=== PATIENT | male | born 1970 | race Caucasian/White ===

== ENCOUNTER 2016-12-23 21:31 | Emergency (ER) | payer MEDICAID ==
[~2016-12-23] VITALS: Ht 182.9 cm; Wt 79.4 kg
[2016-12-23 21:31] VITALS: BP 144/75
--- NOTE | 2016-12-23 21:50 | NUR ---
CALLED FOR TRIAGE; NOT IN LOBBY. INFORMED BY ADMITTING PT WALKED OUT"
== END 2016-12-23 23:12 | disposition left against medical advice (07) ==
LOC: ER 21:34
DX: Z53.21 Procedure and treatment not carried out due to patient leaving prior to being seen by health care provider (principal)
CPT/HCPCS: A4606; Z7610

== ENCOUNTER 2017-02-02 04:01 | Emergency (ER) | payer OTHER ==
--- NOTE | 2017-02-02 04:03 | NUR ---
CALLED FOR TRIAGE; NOT IN LOBBY
--- NOTE | 2017-02-02 04:22 | NUR ---
CALLED AGAIN; NO ANSWER
--- NOTE | 2017-02-02 05:04 | NUR ---
CALLED FOR TRIAGE; NOT IN LOBBY.
== END 2017-02-02 05:05 | disposition left against medical advice (07) ==
LOC: ER 04:01
DX: Z53.21 Procedure and treatment not carried out due to patient leaving prior to being seen by health care provider (principal)

== ENCOUNTER 2017-10-12 08:56 | Emergency (ER) | payer OTHER ==
[~2017-10-12] VITALS: Ht 182.9 cm; Wt 83.9 kg
--- NOTE | 2017-10-12 09:19 | NUR ---
THE PATIENT WAS CLEARED BY DR. KITCHEN.
--- NOTE | 2017-10-12 09:19 | NUR ---
Patient discharged to [facility] in stable condition. Written and verbal after care instructions given. Patient verbalizes understanding of instruction.
[2017-10-12 09:20] VITALS: BP 90/57
[2017-10-12] MEDS ORDERED: OLANZAPINE 10 MG VIAL IM ONE ×2 (10:11→10:30)
== END 2017-10-12 09:22 ==
LOC: ER 08:58
DX: S00.83XA Contusion of other part of head, initial encounter (principal); I10 Essential (primary) hypertension; Z88.0 Allergy status to penicillin; W22.8XXA Striking against or struck by other objects, initial encounter; Y93.89 Activity, other specified; Y92.89 Other specified places as the place of occurrence of the external cause; Y99.8 Other external cause status
CPT/HCPCS: A4606; A6402; J3490; Z7610

== ENCOUNTER 2018-09-05 03:02 | Emergency (ER) | payer OTHER ==
--- NOTE | 2018-09-05 03:07 | NUR ---
PATIENT REFUSED TO BE TRIAGED.
== END 2018-09-05 03:09 | disposition left against medical advice (07) ==
LOC: ER 03:02
DX: Z53.21 Procedure and treatment not carried out due to patient leaving prior to being seen by health care provider (principal)

== ENCOUNTER 2019-08-05 23:46 | Inpatient (IN) | payer MEDICAID, OTHER ==
[~2019-08-05] VITALS: Ht 188 cm; Wt 84.8 kg
--- NOTE | 2019-08-06 | NUR ---
PT AILYN FROM [place] C/O MIDSTERNAL CHEST PAIN. PT ALSO STATES "I JUST WANT TO SLEEP AND SOME FOOD". PT DENIES SOB, HEADACHE, NAUSEA, VOMITTING, DIZZINESS. PT AAOX4. VITAL SIGNS STABLE. RESPIRATIONS EVEN AND UNLABORED. SKIN WARM AND INTACT. NO ACUTE DISTRESS NOTED AT THIS TIME. PLACED ON CONTINUOUS LEAD TRAINER, WILL CONTINUE TO MONITOR
--- NOTE | 2019-08-06 00:26 | NUR ---
IV INITIATED, BLOOD COLLECTED FROM SITE. [facility]Y[employer] [employer] AT BEDSIDE FOR COLLECTION
[2019-08-06 00:35] LABS: BASOPHILS % (AUTO) 0.4 % (0.0-2.0); EOSINOPHILS % (AUTO) 0.2 % (0.0-6.0); HEMATOCRIT 34 % (39-51); HEMOGLOBIN 11.4 g/dL (13.5-17.5); LYMPHOCYTES # (AUTO) 0.9 /CMM (0.8-4.8); LYMPHOCYTES % (AUTO) 15.8 % (20.0-44.0); MEAN CORPUSCULAR HGB CONC 34 g/dl (31.0-36.0); MEAN CORPUSCULAR VOLUME 92 fL (80-96); MONOCYTES # (AUTO) 0.6 /CMM (0.1-1.30); MONOCYTES % (AUTO) 10.5 % (2.0-12.0); NEUTROPHILS # (AUTO) 4.3 /CMM (1.8-8.9); NEUTROPHILS % (AUTO) 73.1 % (43.0-81.0); PLATELET COUNT (AUTO) 183 /CMM (150-450); RED BLOOD CELL COUNT(AUTO) 3.68 MIL/uL (4.5-6.0); WHITE BLOOD COUNT (AUTO) 5.8 K/uL (4.3-11.0)
[2019-08-06 00:40] LABS: CALCIUM, SERUM 8.5 mg/dL (8.5-10.1); CARBON DIOXIDE 25 mmol/L (21-32); CHLORIDE 102 mmol/L (98-107); GLUCOSE 132 mg/dL (74-106); POTASSIUM 3.1 mmol/L (3.5-5.1); SODIUM SERUM 138 mmol/L (136-145); UREA NITROGEN, BLOOD 21 mg/dL (7-18)
[2019-08-06 00:54] LABS: B-TYPE NATRIURETIC PEPTIDE 3043 PG/ML (0-125)
[2019-08-06] MEDS ORDERED: FUROSEMIDE 40 MG/4 ML VIAL IV ONE (02:00)
--- NOTE | 2019-08-06 02:49 | NUR ---
BED ASSIGNMENT 323-2
[2019-08-06] MEDS ORDERED: Z GUARD REMEDY 2 OZ OINT TP PRN (03:30)
[2019-08-06] MEDS ORDERED: ONDANSETRON HCL/PF 4 MG/2 ML VIAL IVP PRN (03:30)
[2019-08-06] MEDS ORDERED: POTASSIUM CHLORIDE 20 MEQ TAB.PRT.SR PO ONE (03:30)
[2019-08-06] MEDS ORDERED: MAGNESIUM HYDROXIDE 30 ML UDC PO PRN (03:30)
[2019-08-06] MEDS ORDERED: ACETAMINOPHEN 325 MG TABLET PO PRN (03:30)
[2019-08-06] MEDS ORDERED: HYDROCODONE/APAP 5/325MG 1 EACH TABLET PO PRN (03:30)
[2019-08-06] MEDS ORDERED: MAG HYDROX/AL HYDROX/SIMETH 30 ML UDC PO PRN (03:30)
[2019-08-06] MEDS ORDERED: FUROSEMIDE 40 MG/4 ML VIAL ONE (04:21)
--- NOTE | 2019-08-06 04:49 | NUR ---
PT TRANSFERRED TO ROOM VIA ACLS PROTOCOL W/ EMT AND RN
[2019-08-06 05:00] VITALS: BP 102/78
[2019-08-06] MEDS: NITROGLYCERIN PACKET 1 GM PACKET TOP SCH ×3 (05:25→21:00)
--- NOTE | 2019-08-06 06:25 | NUR ---
RECEIVED PT VIA KIP FROM [employer] [facility] AT 0456 PT A/O X4, IN STABLE CONDITION ADMIT TO TELEMETRY WITH SINUS RHYTHM 81 HR IN TELE MONITOR. PT SLEPT WELL. NO C/O CHEST PAIN AT THIS TIME. ALL NEEDS ATTENDED AND ANTICIPATED, KEPT CLEAN, DRY AND COMFORTABLE. PT REFUSED TO CHANGE HOSPITAL GOWN PT REFUSED SKIN ASSESSMENT AND PHOTOS. PT VERBALIZED "I JUST WANNA REST AT THIS TIME". EDUCATED PT. SAFETY MEASURES AT ALL TIMES. ENDORSE TO NEXT SHIFT POC.
--- NOTE | 2019-08-06 07:20 | NUR ---
THERAPY AIDE OPENING NOTES RECEIVED PT IN BED, ASLEEP, EASILY AROUSED, A/O X3-4. PT TOLERATING RA WITH NO ACUTE RESPIRATORY DISTRESS NOTED. PT STATED IN PAIN BUT NOT ABLE TO RATE, PT ADDED JUST WANT TO SLEEP AT THIS TIME. ON TELEMONITORING SR HR 95. PIV TO RAC G18, FLUSHED WITH NS, INTACT AND OPERATIONAL. PT KEPT COMFORTABLE IN BED. CALL LIGHT KEPT WITHIN REACH. PT'S BED IN LOWEST, LOCKED POSITION WITH SRX3. WILL CONTINUE PLAN OF CARE.
[2019-08-06] MEDS: FUROSEMIDE 40 MG/4 ML VIAL IV SCH ×3 (08:02→16:03)
[2019-08-06] MEDS: POTASSIUM CHLORIDE 20 MEQ TAB.PRT.SR PO SCH ×3 (08:05→10:28)
[2019-08-06] MEDS: ENOXAPARIN SODIUM 40 MG/0.4 ML DISP.SYRIN SQ SCH ×2 (08:06→08:10)
[2019-08-06 08:27] VITALS: BP 120/66
[2019-08-06] MEDS ORDERED: FUROSEMIDE 40 MG/4 ML VIAL IV SCH (09:00)
--- NOTE | 2019-08-06 11:30 | NUR ---
MS RN NOTES PT REFUSED DKIN ASSESSMENT. PT PREFERS TO ONLY SLEEP AND REST AT THIS TIME.
[2019-08-06 13:14] LABS: ALBUMIN 3.2 g/dL (3.4-5.0); BILIRUBIN,TOTAL 0.6 mg/dL (0.2-1.0); CALCIUM, SERUM 8.5 mg/dL (8.5-10.1); CREATININE 1.1 mg/dL (0.6-1.3); MAGNESIUM 1.8 mg/dL (1.8-2.4); PHOSPHORUS 2.6 mg/dL (2.5-4.9); POTASSIUM 3.6 mmol/L (3.5-5.1)
[2019-08-06 16:02] VITALS: BP 125/81
[2019-08-06 16:08] LABS: THYROID STIMULATING HORMONE 2.929 uIU/mL (0.358-3.74)
--- NOTE | 2019-08-06 19:48 | NUR ---
RN NOTES RECEIVED PATIENT ASLEEP, RESTING COMFORTABLY, NO SIGNS AND SYMPTOMS OF ACUTE DISTRESS NOTED. DOESN'T WANT TO BE BOTHERED, ALL NEEDS ANTICIPATED, WILL CONTINUE TO MONITOR.
--- NOTE | 2019-08-06 20:40 | NUR ---
RN NOTES PATIENT REFUSED TO ASSESS AND TAKE VITAL SIGNS, REFUSED SKIN ASSESSMENT, INFORMED HIM THAT WE NEED TO MAKE SURE HIS VITAL SIGNS ARE WITHIN NORMAL RANGE. PATIENT RESPONDED THAT HE JUST WANT TO SLEEP AND REST FOR TONIGHT. WILL FOLLOW UP AND CONTINUE MONITORING PATIENT.
[2019-08-07] MEDS: NITROGLYCERIN PACKET 1 GM PACKET TOP SCH ×2 (05:00→12:45)
--- NOTE | 2019-08-07 06:57 | NUR ---
RN NOTES ALL NEEDS ATTENDED AND MET, ABLE TO REST AND SLEPT WITH LONG INTERVALS, SAFETY MEASURES IN PLACE, CALL LIGHT WITH IN EASY REACH. WILL ENDORSE TO AM NURSE FOR CONTINUITY OF CARE.
--- NOTE | 2019-08-07 07:46 | NUR ---
rn opening notes patient received on room air, no sob noted, patient denies pain at this time. A/O x4 with R AC 18 SL. Bed at the lowest setting, call light within reach, side rails up x2.
[2019-08-07 08:00] VITALS: BP 122/71
[2019-08-07] MEDS: ENOXAPARIN SODIUM 40 MG/0.4 ML DISP.SYRIN SQ SCH (09:00)
--- NOTE | 2019-08-07 11:51 | NUR ---
Social service consult requested by MD for homelessness. Per MD notes and chart review, pt is a 48-year-old male who reports a history of CHF but denies any other medical history presenting by EMS. Patient is complaining of central substernal chest pain and SOB. Only reports as "pain". No radiation. EMS reports that their initial call was for chest pain. However, when they arrived on scene patient denied any chest pain and only stated that he had just gotten out of retirement and was tired of being on the streets and needed something to eat in a place to sleep. DIRECTOR OF OUTREACH and family service caseworker Mery met with the pt bedside. Pt is alert and oriented x 4. Pt hid his face throughout the entire assessment and provided no eye contact. Pt reports to be homeless for the past 3 years. Pt is not providing much information and answers with "yes" " no". Pt denies any drug, alcohol or cigarette use. DIRECTOR OF OUTREACH discussed winter half-way placement and homeless resources. Pt will be provided with homeless packet with referrals and TAP card upon discharge. SW is available, if needed.
[2019-08-07] MEDS ORDERED: SOD FERRIC GLUC 125 MG in IV NS 0.9% 100 ML IV SCH (14:00)
--- NOTE | 2019-08-07 15:19 | NUR ---
rn notes Patient asked for a pain medication but fell asleep after a few seconds of requesting. Refused insertion of IV line and stated that he only wants pain medication and nothing else. Told the MD about this because patient was asking for a pain medication. Patient also stated that he does not want tylenol and wants something stronger. No new orders at this time.
[2019-08-07 16:00] VITALS: BP 128/67
--- NOTE | 2019-08-07 17:55 | NUR ---
rn closing notes patient remains on room air, no sob noted, a/o x4 and pretty much refused all medications. R AC 18 SL. Bed at the lowest setting, call light within reach, side rails up x2. Will give report to NOC RN bedside.
--- NOTE | 2019-08-07 19:40 | NUR ---
MS RN NOTES PATIENT WAS PACING THE UNIT WHEN RECEIVED REPORT. ALERT AND ORIENTED X 4. STATED HE WANTED TO LEAVE FOR A SMOKE BREAK, INFORMED HIM MULTIPLE TIMES WE WILL WALK HIM DOWN AND ACCOMPANY HIM. PATIENT REFUSED TO WAIT AND STATED, " I WANT TO LEAVE RIGHT NOW." INFORMED THE PATIENT THE RISKS, AND PATIENT REFUSED TO LISTEN AND WANTED TO LEAVE AGAINST MEDICAL ADVICE. PATIENT STATED, 'I DO NOT CARE, I WANT TO LEAVE NOW." PATIENT'S ID BAND WAS REMOVED AND IV ACCESS WAS REMOVED DURING THE DAY REPORTED BY THE DAYSHIFT NURSE. PATIENT LEFT THE UNIT AND WAS ACCOMPANIED BY AND LEFT THE HOSPITAL AT 1937.
== END 2019-08-07 19:40 | disposition left against medical advice (07) | DRG 194 ==
LOC: ER 23:47 → TELE 08-06 03:03 → MED 08-06 08:41
PROVIDERS: ADMIT Family Medicine; ATTEND Family Medicine
DX: I11.0 Hypertensive heart disease with heart failure (principal); N17.0 Acute kidney failure with tubular necrosis; D63.8 Anemia in other chronic diseases classified elsewhere; Z59.0 Homelessness; Z87.891 Personal history of nicotine dependence; R73.9 Hyperglycemia, unspecified; E87.6 Hypokalemia; I50.33 Acute on chronic diastolic (congestive) heart failure
CPT/HCPCS: 36415; 71045-TC; 80048-TC; 80053-TC; 82728-TC; 83540-TC; 83735-TC; 83880; 84100-TC; 84439-TC; 84443-TC; 84484-TC; 85025-TC; 87081-TC; G0378; J1650; J1940; J2916; J7030

== ENCOUNTER 2019-08-29 06:05 | Emergency (ER) | payer MEDICAID, OTHER ==
--- NOTE | 2019-08-29 06:18 | NUR ---
ATTEMPTED TO TRIAGE PATIENT. PT REFUSING TO BE TRAIGED AT THIS TIME. MD AWARE
--- NOTE | 2019-08-29 06:40 | NUR ---
PT REFUSING TO BE TRIAGED/VITAL SIGNS. PT STATES "I JUST WANT FOOD, I'M LEAVING"
== END 2019-08-29 06:44 | disposition home or self-care (01) ==
LOC: ER 06:08
DX: Z53.21 Procedure and treatment not carried out due to patient leaving prior to being seen by health care provider (principal)

== ENCOUNTER 2019-11-30 04:06 | Emergency (ER) | payer OTHER ==
[~2019-11-30] VITALS: Ht 188 cm; Wt 81.6 kg
[2019-11-30 04:25] LABS: BASOPHILS % (AUTO) 0.4 % (0.0-2.0); EOSINOPHILS % (AUTO) 0.6 % (0.0-6.0); HEMATOCRIT 41 % (39-51); HEMOGLOBIN 13.5 g/dL (13.5-17.5); LYMPHOCYTES # (AUTO) 1.7 /CMM (0.8-4.8); LYMPHOCYTES % (AUTO) 24.1 % (20.0-44.0); MEAN CORPUSCULAR HGB CONC 33 g/dl (31.0-36.0); MEAN CORPUSCULAR VOLUME 91 fL (80-96); MONOCYTES # (AUTO) 0.9 /CMM (0.1-1.30); MONOCYTES % (AUTO) 12.7 % (2.0-12.0); NEUTROPHILS # (AUTO) 4.3 /CMM (1.8-8.9); NEUTROPHILS % (AUTO) 62.2 % (43.0-81.0); PLATELET COUNT (AUTO) 176 /CMM (150-450); RED BLOOD CELL COUNT(AUTO) 4.48 MIL/uL (4.5-6.0)
[2019-11-30 04:29] VITALS: BP 142/84
--- NOTE | 2019-11-30 04:33 | NUR ---
[id number] C/O MIDSTERNAL CHEST PAIN. PER RA, REC'D [facility] ART THERAPIST TO ER BED 10, REFUSED IV
[2019-11-30 04:52] LABS: CALCIUM, SERUM 9.2 mg/dL (8.5-10.1); CARBON DIOXIDE 26 mmol/L (21-32); CHLORIDE 106 mmol/L (98-107); GLUCOSE 115 mg/dL (74-106); SODIUM SERUM 143 mmol/L (136-145); UREA NITROGEN, BLOOD 27 mg/dL (7-18)
[2019-11-30 04:58] LABS: ALANINE AMINOTRANSFERASE 21 U/L (12-78); ALKALINE PHOSPHATASE 73 U/L (46-116); ASPARTATE AMINOTRANSFERASE 23 U/L (15-37); BILIRUBIN,DIRECT 0.2 mg/dL (0.0-0.2); BILIRUBIN,TOTAL 0.9 mg/dL (0.2-1.0); TOTAL PROTEIN, SERUM 7.5 g/dL (6.4-8.2)
--- NOTE | 2019-11-30 04:58 | NUR ---
Patient eloped from facility. ER MD notified.
== END 2019-11-30 06:21 | disposition left against medical advice (07) ==
LOC: ER 04:06
DX: R07.89 Other chest pain (principal); I10 Essential (primary) hypertension; Z98.890 Other specified postprocedural states; Z88.0 Allergy status to penicillin
CPT/HCPCS: 36415; 71045-TC; 80048-TC; 80076-TC; 84484-TC; 85025-TC

== ENCOUNTER 2020-03-14 20:57 | Emergency (ER) | payer MEDICAID, OTHER ==
[~2020-03-14] VITALS: Ht 188 cm; Wt 86.2 kg
[~2020-03-14 20:57] MED LIST: LEVO500T90 PO
--- NOTE | 2020-03-14 21:06 | NUR ---
BG 120
[2020-03-14 21:30] LABS: BASOPHILS % (AUTO) 0.5 % (0.0-2.0); EOSINOPHILS % (AUTO) 1.1 % (0.0-6.0); HEMATOCRIT 41 % (39-51); HEMOGLOBIN 13.4 g/dL (13.5-17.5); LYMPHOCYTES # (AUTO) 1.5 /CMM (0.8-4.8); LYMPHOCYTES % (AUTO) 27.2 % (20.0-44.0); MEAN CORPUSCULAR HGB CONC 32 g/dl (31.0-36.0); MEAN CORPUSCULAR VOLUME 92 fL (80-96); MONOCYTES # (AUTO) 0.5 /CMM (0.1-1.30); MONOCYTES % (AUTO) 9.1 % (2.0-12.0); NEUTROPHILS # (AUTO) 3.5 /CMM (1.8-8.9); NEUTROPHILS % (AUTO) 62.1 % (43.0-81.0); PLATELET COUNT (AUTO) 186 /CMM (150-450); RED BLOOD CELL COUNT(AUTO) 4.51 MIL/uL (4.5-6.0); WHITE BLOOD COUNT (AUTO) 5.7 K/uL (4.3-11.0)
[2020-03-14] MEDS ORDERED: oxyCODONE/APAP (5/325 MG) 1 UDTAB TABLET PO ONE (21:30)
[2020-03-14] MEDS ORDERED: KETOROLAC TROMETHAMINE INJ 30 MG/ML VIAL IV ONE (21:30)
--- NOTE | 2020-03-14 21:33 | NUR ---
XRAY AT BEDSIDE.
[2020-03-14] MEDS ORDERED: KETOROLAC TROMETHAMINE 15 MG/ML VIAL ONE (21:34)
[2020-03-14] MEDS ORDERED: oxyCODONE/APAP (5/325 MG) 1 UDTAB TABLET ONE (21:35)
--- NOTE | 2020-03-14 22:36 | NUR ---
PATIENT IS SLEEPING. EASILY AROUSABLE THROUGH VERBAL STIMULI. CONNECTED TO THE HAND III CUTTER. SIDE RAILS ARE UP FOR SAFETY. BED AT THE LOWEST POSITION. SITTER NEAR BEDSIDE.
[2020-03-14 22:54] LABS: CARBON DIOXIDE 25 mmol/L (21-32); CHLORIDE 104 mmol/L (98-107); CREATININE 0.7 mg/dL (0.6-1.3); GLUCOSE 98 mg/dL (74-106); POTASSIUM 3.7 mmol/L (3.5-5.1); SODIUM SERUM 139 mmol/L (136-145); UREA NITROGEN, BLOOD 26 mg/dL (7-18)
[2020-03-14 22:59] LABS: ALANINE AMINOTRANSFERASE 28 U/L (12-78); ALBUMIN 3.7 g/dL (3.4-5.0); ALKALINE PHOSPHATASE 56 U/L (46-116); ASPARTATE AMINOTRANSFERASE 21 U/L (15-37); BILIRUBIN,DIRECT 0.2 mg/dL (0.0-0.2); BILIRUBIN,TOTAL 0.9 mg/dL (0.2-1.0); LIPASE 55 U/L (73-393); TOTAL PROTEIN, SERUM 7.1 g/dL (6.4-8.2)
--- NOTE | 2020-03-14 23:18 | NUR ---
SPOKE WITH ANUJ (NURSING WIRE TWISTING MACHINE OPERATOR) FROM [facility] AND INFORMED PT WILL RETURN BACK TO FACILITY. UNIT 2 ROOM 203
--- NOTE | 2020-03-14 23:22 | NUR ---
[facility] ETA 0036
--- NOTE | 2020-03-15 00:02 | NUR ---
CALLED JAZMYNE AMBROSIO FROM [facility] FOR REPORT FOR [facility].
--- NOTE | 2020-03-15 00:33 | NUR ---
PATIENT IS SLEEPING. EASILY AROUSABLE THROUGH VERBAL STIMULI. BREATHING EVENLY AND UNLABORED ON ROOM AIR. CONNECTED TO THE MONITOR. SITTER NEAR BEDSIDE.
--- NOTE | 2020-03-15 01:01 | NUR ---
REPORT GIVEN TO TRANSPORT TEAM FOR [facility]. AND TRANSFERRING RESPONSIBILITIES.
--- NOTE | 2020-03-15 01:08 | NUR ---
PATIENT GIVEN FOOD.
--- NOTE | 2020-03-15 01:08 | NUR ---
Patient discharged to home in stable condition. Written and verbal after care instructions given. Patient verbalizes understanding of instruction.
--- NOTE | 2020-03-15 01:08 | NUR ---
PATIENT STATES THAT HE IS NOT SUICIDAL, NOR HOMICIDAL, AND THAT HE WANTS TO LEAVE AND NOT RETURN TO [facility]. NOTIFIED.
[2020-03-15 02:04] VITALS: BP 124/61
== END 2020-03-15 02:04 | disposition home or self-care (01) ==
LOC: ER 20:57
DX: R07.89 Other chest pain (principal); F32.9 Major depressive disorder, single episode, unspecified; I45.10 Unspecified right bundle-branch block; I11.0 Hypertensive heart disease with heart failure; I50.9 Heart failure, unspecified; E87.6 Hypokalemia; Z88.0 Allergy status to penicillin; Z59.0 Homelessness
CPT/HCPCS: 36415; 71045; 80048; 80076; 83690; 83880; 84484; 85025; 93005; 96374; 99285; J1885

== ENCOUNTER 2024-07-03 04:43 | Emergency (ER) | payer MEDICAID, OTHER ==
[~2024-07-03] VITALS: Ht 177.8 cm; Wt 89.8 kg
[2024-07-03 04:53] VITALS: BP 140/82; TEMP 98; O2SAT 100
== END 2024-07-03 05:19 | disposition home or self-care (01) ==
LOC: ER 04:44
DX: S81.811A Laceration without foreign body, right lower leg, initial encounter (principal); I11.0 Hypertensive heart disease with heart failure; I50.9 Heart failure, unspecified; F17.200 Nicotine dependence, unspecified, uncomplicated; Z59.00 Homelessness unspecified; Z88.0 Allergy status to penicillin; X58.XXXA Exposure to other specified factors, initial encounter; Y93.55 Activity, bike riding; Y92.89 Other specified places as the place of occurrence of the external cause; Y99.8 Other external cause status